=== PATIENT | female | born 1950 | race Caucasian/White ===

== ENCOUNTER 2019-03-24 09:28 | Outpatient (CLI) | payer MEDICARE, OTHER ==
--- NOTE | 2019-03-24 10:25 | RAD ---
XR Barium Swallow Esophagus History: K 21.0 gastroesophageal reflux disease Comparison: None. Findings: Patient was brought to the fluoroscopy suite. All questions were answered. Informed consent was obtained. Timeout performed. The PA chest radiograph there are JT right humeral plate-screw fixation. Lungs are clear. No pneumoth orax. Mr. the patient was giving a very small dose of gas-forming crystals. Patient tolerated this well. Ne xt patient was given thick liquid barium for which primary and secondary peristalsis was normal. No extrinsic mass effect or diverticulum. There is narrowing at the GE junction at the lap band. Next patient was put in the DUEÑAS position. Primary and secondary peristalsis was again normal although there is incomplete emptying. Numerous tertiary contractions. Small sliding hernia in the DUEÑAS position. Impression: 1. Small sliding hernia in the DUEÑAS position with tertiary contractions and incomplete esophageal empt sheyla. 2. Narrowing of the GE junction at the lap band.
== END 2019-03-24 09:29 | disposition home or self-care (01) ==
LOC: RAD 09:28
PROVIDERS: ATTEND Surgery
DX: K21.0 Gastro-esophageal reflux disease with esophagitis (principal); K40.90 Unilateral inguinal hernia, without obstruction or gangrene, not specified as recurrent
CPT/HCPCS: 74220

== ENCOUNTER 2019-04-09 12:41 | Outpatient (CLI) | payer MEDICARE, OTHER | END 2019-04-09 12:42 | disposition home or self-care (01) | LOC: DTY/OP 12:41 | PROVIDERS: ATTEND Surgery | DX: E66.01 Morbid (severe) obesity due to excess calories (principal) | CPT/HCPCS: 97802 ==

== ENCOUNTER 2019-06-13 13:00 | Inpatient (IN) | payer MEDICARE, OTHER ==
[2019-06-13 13:23] VITALS: BMI 35.0
[2019-06-18] MEDS ORDERED: Lidocaine 1% PF 5 ML VIAL ONE (10:04)
[2019-06-18] MEDS ORDERED: ePHEDrine/0.9% NaCl/PF SYRINGE 50 mg/10 ml ONE (10:04)
[2019-06-18] MEDS ORDERED: Ondansetron PF 4 MG/2 ML Vial ONE (10:04)
[2019-06-18] MEDS ORDERED: PHENYLEPHRINE-NS 100 MCG/ML 10 ML SYRINGE ONE (10:04)
[2019-06-18] MEDS ORDERED: Ketorolac Tromethamine 30 MG/ML VIAL ONE (10:04)
[2019-06-18] MEDS ORDERED: Rocuronium Bromide 10 MG/ML (10ML VIAL) ONE (10:04)
[2019-06-18] MEDS ORDERED: Glycopyrrolate 0.2 MG/ML 5 ML SYRINGE ONE (10:04)
[2019-06-18] MEDS ORDERED: PROPOFOL 200 MG/20 ML VIAL ONE (10:04)
[2019-06-18] MEDS ORDERED: Heparin 5,000 UNITS/ML VIAL ONE (10:15)
[2019-06-18] MEDS ORDERED: Midazolam HCl 2 mg/2 ml Vial ONE (10:26)
[2019-06-18] MEDS ORDERED: Bupivacaine HCl 0.25%/Epi 0.0005/PF 10 ML VIAL FS ONE (10:34)
[2019-06-18] MEDS ORDERED: HYDROmorphone 0.5 MG/0.5 ML SYRINGE ONE (11:48)
[2019-06-18] MEDS ORDERED: Fentanyl 100 MCG/2 ML VIAL ONE ×2 (11:48→14:22)
[2019-06-18] MEDS ORDERED: Promethazine HCl 25 MG/ML VIAL ONE ×2 (11:48→13:48)
[2019-06-18] MEDS ORDERED: Promethazine HCl 25 MG/ML VIAL IM PRN ×3 (13:12→14:03)
[2019-06-18] MEDS ORDERED: Promethazine HCl 25 MG/ML VIAL SLOW IVP PRN (13:12)
[2019-06-18] MEDS ORDERED: Ondansetron HCl/PF 4 MG/2 ML Vial IVP PRN (13:12)
[2019-06-18] MEDS ORDERED: HYDROmorphone 2 MG/ML VIAL SLOW IVP PRN (13:12)
[2019-06-18] MEDS ORDERED: Dextrose 5% in Water 1,000 ML IV PRN (13:36)
[2019-06-18] MEDS ORDERED: Ondansetron PF 4 MG/2 ML Vial IVP PRN ×2 (13:36→14:03)
[2019-06-18] MEDS ORDERED: diphenhydrAMINE 50 MG/ML VIAL IVP PRN ×2 (13:36→14:03)
[2019-06-18] MEDS ORDERED: Insulin Regular 300 UNITS/3 ML VIAL SC PRN (13:36)
[2019-06-18] MEDS ORDERED: hydrALAZINE 20 MG/ML VIAL SLOW IVP PRN (13:36)
[2019-06-18] MEDS ORDERED: Hydrocodone-Acetamin 15 ML UDCUP PO PRN (13:36)
[2019-06-18] MEDS ORDERED: Dextrose 50% Abboject 50 ML SYRINGE SLOW IVP PRN (13:36)
[2019-06-18] MEDS ORDERED: fentaNYL Citrate/PF 2,000 MCG in Sodium Chloride 0.9% 60 ML IV PRN (14:03)
[2019-06-18] MEDS ORDERED: diphenhydrAMINE 25 MG CAP PO PRN (14:03)
[2019-06-18] MEDS ORDERED: diphenhydrAMINE 50 MG/ML VIAL IM PRN (14:03)
[2019-06-18] MEDS ORDERED: Naloxone HCl 0.4 mg/ml Vial IV PRN (14:03)
[2019-06-18] MEDS ORDERED: Zolpidem Tartrate 5 MG TAB PO PRN (14:03)
[2019-06-18] MEDS ORDERED: Communication Order-Pharmacy FS SCH (14:15)
--- NOTE | 2019-06-18 14:35 | OP ---
DATE OF PROCEDURE: 06/18/2019 PREOPERATIVE DIAGNOSES: Morbid obesity and band intolerance. PROCEDURES PERFORMED: Laparoscopic removal of Lap-Band port, sleeve gastrectomy and esophagogastroscopy INDICATIONS FOR PROCEDURE: The patient is a 69-year-old female who had a Lap-Band placed back in 2008. She has been having a lot of trouble with it, unable to tolerate any restriction. She is gaining back her weight, developed multiple comorbidities. FINDINGS: Mild adhesions. Lap-Band removed intact. 38-Malagasy bougie used. DESCRIPTION OF PROCEDURE: After informed consent was obtained, the patient was taken to the operating room and given general endotracheal anesthesia, and placed in supine position. Abdomen was prepped and draped in the usual fashion. Local anesthesia was infiltrated subcutaneously and deep. A 12 mm incision was performed approximately 8 inches above the xiphoid slightly to the left. Veress needle was inserted. Drop test was performed. Pneumoperitoneum was created to a pressure of 15 mmHg. A 0-degree laparoscope was inserted under direct vision. The patient was placed in steep reverse Trendelenburg position. [place] liver retractor was inserted and the left lobe of the liver was retracted superiorly. The pylorus was identified. A 12 mm port was placed on the right beneath it and two 12s were placed left subcostal. The omentum was taken off the greater curvature 5 cm from the pylorus utilizing the LigaSure. Short gastrics were divided with LigaSure. Left crura defined with the LigaSure. The Lap-Band tubing was divided sharply. The tubing was traced down to the buckle. The buckle was dissected out. The buckle was unbuckled and removed from around the stomach. The capsule was incised circumferentially. A 38-Malagasy bougie was inserted, directed into the antrum. The linear 60 mm green load stapler was used to divide the antrum to the bougie. A series of golds were used along the bougie, and a couple of blues at the end. The bougie removed. Intraoperative endoscopy was performed. The videoendoscope was inserted under direct vision and advanced into the sleeve. The staple line inspected. There was no bleeding. Staple line then tested by inflating the new stomach with pressurized air and water. There was no air leak. Stomach was decompressed. The scope was removed. The remnant stomach removed from the abdomen through the left lateral port site. The Lap-Band port was then dissected out and removed. The fascia was closed with 0 Vicryl suture and the GraNee needle. Trocars and retractors were removed and the skin was closed with interrupted 4 L Rapide. Dermabond was applied. The patient tolerated the procedure well and transferred to Recovery in good condition. Sponge and needle count verified correct x2. Job ID: [id number]
[2019-06-18] MEDS ORDERED: diphenhydrAMINE 50 MG/ML VIAL ONE (14:57)
[2019-06-18] MEDS: 1/2 NS w/KCL 20 mEq 1,000 ML IV SCH ×2 (15:23→22:19)
[2019-06-18] MEDS: CEFAZOLIN 2 GM in Premix Bag 1 BAG IVPB SCH (17:41)
[2019-06-18] MEDS: Famotidine/PF 20 mg/2ml Vial SLOW IVP PRN (17:43)
[2019-06-19] MEDS: CEFAZOLIN 2 GM in Premix Bag 1 BAG IVPB SCH (01:29)
[2019-06-19 04:51] LABS: #Eosinphils 0.1 thou/uL (0.0-0.7); #Lymphocytes 1.1 thou/uL (1.20-3.40); #Monocytes 0.7 thou/uL (0.11-0.59); #Neutrophils 7.3 thou/uL (1.40-6.50); %Basophils 0.1 % (0.0-1.0); %Eosinophils 0.6 % (0.0-10.0); %Lymphocytes 12.1 % (21.0-51.0); %Monocytes 7.6 % (0.0-10.0); %Neutrophils 79.6 % (42.0-75.0); Hemoglobin 11.5 g/dL (12.0-16.0); Mean Corpuscular HGB CONC 33.6 g/dL (32.0-36.0); Mean Corpuscular Hemoglobin 32.8 pg (27.0-31.0); Mean Corpuscular Volume 97.6 fL (78.0-98.0); Mean Platelet Volume 7.3 fL (7.4-10.4); Platelet Count 193 thou/uL (130-400); RBC Distribution Width 12.2 % (11.5-14.5); Red Blood Cell (RBC) Count 3.51 mill/uL (4.20-5.40); White Blood Cell (WBC) Count 9.1 thou/uL (4.8-10.8)
[2019-06-19] MEDS: Famotidine/PF 20 mg/2ml Vial SLOW IVP PRN (04:54)
[2019-06-19 05:13] LABS: Anion Gap 11 mmol/L (10-20); BUN (Urea Nitrogen) 12 mg/dL (9.8-20.1); Calc. Creatinine Clearance 99 mL/min (70-130); Calcium 8.8 mg/dL (7.8-10.44); Carbon Dioxide 28 mmol/L (23-31); Chloride 100 mmol/L (98-107); Estimated GFR-MDRD 75; Glucose 120 mg/dL (83-110); Potassium 4.3 mmol/L (3.5-5.1); Sodium 135 mmol/L (136-145)
[2019-06-19] MEDS: 1/2 NS w/KCL 20 mEq 1,000 ML IV SCH ×2 (06:01→09:54)
[2019-06-19] MEDS ORDERED: Pantoprazole 40 MG VIAL IVP SCH (09:00)
[2019-06-19] MEDS ORDERED: Enoxaparin Sodium 30 MG/0.3 ML SYRINGE SC SCH (09:00)
--- NOTE | 2019-06-19 11:26 | RAD ---
Examination: Single contrast upper GI without air HISTORY: Status post gastric bypass and vertical sleeve. Patient had a prior lap band. Patient was given initially 50 cc of Gastrografin orally. Contrast media passed through the distal es ophagus and into the postoperative stomach which is somewhat dilated. A second 15 mL swallow of Gastrografin was given. Contrast media did progress through the postoperative stomach and into the du odenum. No evidence for leak or extravasation. IMPRESSION: No evidence for extravasation or leak.
[2019-06-19 11:34] VITALS: BP 139/78; TEMP 98.1
[2019-06-19] MEDS ORDERED: Hydrocodone-Acetamin 15 ML UDCUP PO PRN (11:50)
--- NOTE | 2019-06-19 13:54 | DIS ---
DATE OF ADMISSION: 06/18/2019 DATE OF DISCHARGE: 06/19/2019 DISCHARGE DIAGNOSES: Morbid obesity and dysfunctional lap band. PROCEDURES DURING ADMISSION: Laparoscopic removal of lap band and port, sleeve gastrectomy, intraoperative esophagogastroscopy, and postoperative Gastrografin swallow. HOSPITAL COURSE: The patient was admitted, taken to the operating room where she underwent removal of band, sleeve, and got esophagogastroscopy. Postoperatively, she has done well. Her x-ray was fine. She is tolerating liquids well. She was discharged to home on hydrocodone and Zofran. She will follow up with me in 2 weeks. Job ID: [id number]
== END 2019-06-19 13:54 | disposition home or self-care (01) | DRG 620 ==
LOC: SURG A 06-18 09:03
PROVIDERS: ADMIT Surgery; ATTEND Surgery
PROC: 0DB64Z3 Excision of Stomach, Percutaneous Endoscopic Approach, Vertical (ICD-10-PCS; principal; 2019-06-18)
PROC: 0DP64CZ Removal of Extraluminal Device from Stomach, Percutaneous Endoscopic Approach (ICD-10-PCS; 2019-06-18)
PROC: 0DJ08ZZ Inspection of Upper Intestinal Tract, Via Natural or Artificial Opening Endoscopic (ICD-10-PCS; 2019-06-18)
DX: E66.01 Morbid (severe) obesity due to excess calories (principal); T85.598A Other mechanical complication of other gastrointestinal prosthetic devices, implants and grafts, initial encounter; E11.9 Type 2 diabetes mellitus without complications; I10 Essential (primary) hypertension; E03.9 Hypothyroidism, unspecified; F32.9 Major depressive disorder, single episode, unspecified; F17.200 Nicotine dependence, unspecified, uncomplicated; Y83.1 Surgical operation with implant of artificial internal device as the cause of abnormal reaction of the patient, or of later complication, without mention of misadventure at the time of the procedure; Z96.653 Presence of artificial knee joint, bilateral; Z79.899 Other long term (current) drug therapy; Z68.35 Body mass index [BMI] 35.0-35.9, adult; Z88.5 Allergy status to narcotic agent; Z88.8 Allergy status to other drugs, medicaments and biological substances; Z90.710 Acquired absence of both cervix and uterus; Z79.890 Hormone replacement therapy; Z79.84 Long term (current) use of oral hypoglycemic drugs; Z79.1 Long term (current) use of non-steroidal anti-inflammatories (NSAID)
CPT/HCPCS: 36415; 36416; 74241; 80048; 85025; 88307; 88312; C9113; J0690; J1170; J1200; J1644; J1650; J1885; J2001; J2250; J2405; J2550; J2704; J3010; J3480; S0028

== ENCOUNTER 2019-06-13 13:01 | Outpatient (CLI) | payer MEDICARE, OTHER ==
[2019-06-13 14:12] LABS: #Eosinphils 0.2 thou/uL (0.0-0.7); #Monocytes 0.6 thou/uL (0.11-0.59); #Neutrophils 4.8 thou/uL (1.40-6.50); %Basophils 0.2 % (0.0-1.0); %Eosinophils 2.7 % (0.0-10.0); %Lymphocytes 26.6 % (21.0-51.0); %Monocytes 7.7 % (0.0-10.0); %Neutrophils 62.8 % (42.0-75.0); Hemoglobin 13.8 g/dL (12.0-16.0); Mean Corpuscular HGB CONC 33.7 g/dL (32.0-36.0); Mean Corpuscular Hemoglobin 32.2 pg (27.0-31.0); Mean Corpuscular Volume 95.6 fL (78.0-98.0); Mean Platelet Volume 7.1 fL (7.4-10.4); Platelet Count 262 thou/uL (130-400); RBC Distribution Width 12.2 % (11.5-14.5); Red Blood Cell (RBC) Count 4.28 mill/uL (4.20-5.40); White Blood Cell (WBC) Count 7.6 thou/uL (4.8-10.8)
[2019-06-13 14:18] LABS: Hemoglobin A1c 5.6 % (4.0-6.0)
--- NOTE | 2019-06-13 14:32 | RAD ---
EXAM: Chest Two Views 06/13/2019 2:29 PM HISTORY: Preoperative evaluation for lap band removal COMPARISON: Degenerative fourth 2005 FINDINGS: Heart: Normal in size and contour. Pulmonary vessels: Normal. Costophrenic angles: Clear. Lungs: No acute airspace consolidation. Pneumothorax: None. Osseous structures:Intact. Additional findings: There is partial visualization of a laparoscopic gastric band in the left uppe r quadrant of the abdomen. There is bilateral severe glenohumeral osteoarthrosis. There is a healed instrument a proximal right humerus fracture. IMPRESSION: No significant acute intrathoracic disease.
[2019-06-13 14:33] LABS: ALT (SGPT) 11 U/L (8-55); AST (SGOT) 11 U/L (5-34); Albumin 4.4 g/dL (3.4-4.8); Alkaline Phosphatase 81 U/L (40-110); Anion Gap 15 mmol/L (10-20); BUN (Urea Nitrogen) 15 mg/dL (9.8-20.1); Bilirubin, Direct 0.2 mg/dL (0.1-0.3); Bilirubin, Total 0.4 mg/dL (0.2-1.2); Calc. Creatinine Clearance 0 mL/min (70-130); Carbon Dioxide 29 mmol/L (23-31); Chloride 101 mmol/L (98-107); Estimated GFR-MDRD 69; Globulin 2.3 g/dL (2.4-3.5); Glucose 123 mg/dL (83-110); Potassium 4.8 mmol/L (3.5-5.1); Protein, Total 6.7 g/dL (6.0-8.3); Sodium 140 mmol/L (136-145)
== END 2019-06-13 13:02 | disposition home or self-care (01) ==
LOC: LABBT 13:01
PROVIDERS: ATTEND Surgery
DX: Z01.818 Encounter for other preprocedural examination (principal); E11.9 Type 2 diabetes mellitus without complications; I10 Essential (primary) hypertension; Z68.35 Body mass index [BMI] 35.0-35.9, adult
CPT/HCPCS: 71046; 80053; 80076; 83036; 85025